=== PATIENT | female | born 1965 | race Caucasian/White ===

== ENCOUNTER 2017-09-22 14:36 | Emergency (ER) | payer SELFPAY ==
[~2017-09-22] VITALS: Ht 175.3 cm; Wt 51.0 kg
[~2017-09-22 14:36] MED LIST: CLIN150 PO; IBUP800T23 PO; RISP2TAB2 PO; TRAM50 PO
[2017-09-22 14:41] VITALS: BP 110/54; PULSE 87; RESP 16; TEMP 99.1; O2SAT 94
--- NOTE | 2017-09-22 14:57 | PD ---
HPI Chief Complaint: Cold / Flu Symptoms Time Seen by Provider: 14:47 Travel History International Travel<30 days: No Contact w/Intl Traveler<30days: No Traveled to known affect area: No History of Present Illness HPI 52-year-old female presents to the emergency department for evaluation of cold symptoms for 3 days. Patient reports sore throat, coughing, congestion. Patient denies any history of asthma, COPD, pneumonia. Patient denies any fevers or chills. No chest pain. No abdominal pain. She reports decreased appetite. No vomiting. No diarrhea. No exacerbating or alleviating factors. Mild severity. PFSH Past Medical History Bipolar Disorder: Yes Anxiety: Yes Cardiovascular Problems: Yes Diminished Hearing: No Hypertension: Yes Implanted Vascular Access Dvce: Yes (AICD - [employer]) Psychiatric: Yes Menopausal: Yes Past Surgical History Abdominal Surgery: Yes (HX SBO) AICD: Yes Cardiac Surgery: Yes (AICD PLACED 12/2006) Hysterectomy: Yes Social History Alcohol Use: No (PT DENIES) Tobacco Use: Yes (ONE PPD) Substance Use: No Allergies-Medications (Allergen,Severity, Reaction): Coded Allergies: trazodone (Unverified Allergy, Severe, SVT, 12/15/16) acetaminophen (Unverified Allergy, Mild, UNKNOWN, 12/15/16) paroxetine (Unverified Allergy, Mild, UNKNOWN, 12/15/16) propoxyphene (Unverified Allergy, Mild, UNKNOWN, 12/15/16) Reported Meds & Prescriptions Reported Meds & Active Scripts Active Risperdal (Risperidone) 2 Mg Tab 2 Mg PO BID 30 Days Reported Remeron (Mirtazapine) 15 Mg Tab 7.5 Mg PO HS Review of Systems Except as stated in HPI: all other systems reviewed are Neg Physical Exam Narrative GENERAL: Well-nourished, well-developed female patient, afebrile SKIN: Focused skin assessment warm/dry. HEAD: Normocephalic. Atraumatic ENT: Mucosa pink and moist. No erythema or exudates. No uvular edema. No uvular , palatal, or tonsillar deviation. Airway patent. Nasal turbinates appear normal without nasal blood, purulent drainage or septal hematoma. Bilateral tympanic membranes clear without erythema or perforation. EYES: No scleral icterus. No injection or drainage. NECK: Supple, trachea midline. No JVD or lymphadenopathy. CARDIOVASCULAR: Regular rate and rhythm without murmurs, gallops, or rubs. RESPIRATORY: Breath sounds equal bilaterally. No accessory muscle use. Lung sounds are clear to auscultation. Dry cough noted GASTROINTESTINAL: Abdomen soft, non-tender, nondistended. MUSCULOSKELETAL: No cyanosis, or edema. BACK: Nontender without obvious deformity. No CVA tenderness. Data Data Last Documented VS Vital Signs Date Time Temp Pulse Resp B/P (MAP) Pulse Ox O2 Delivery O2 Flow Rate FiO2 09/22/17 14:41 99.1 87 16 110/54 (72) 94 Orders Orders Chest, Pa & Lat (09/22/17 ) Group A Rapid Strep Screen (09/22/17 14:57) Strep Culture (Group A) (09/22/17 15:00) MDM Medical Decision Making Medical Screen Exam Complete: Yes Emergency Medical Condition: Yes Medical Record Reviewed: Yes Interpretation(s) Last Impressions Chest X-Ray 09/22/17 0000 Signed Impressions: CONCLUSION: 1. Hyperaeration characteristic of COPD. 2. No acute intrathoracic disease. Electronically signed by: Abe Torres MD 09/22/2017 3:27 PM EDT Differential Diagnosis Bronchitis versus URI versus pneumonia versus COPD exacerbation Narrative Course 52-year-old female presents to the emergency department for evaluation of cold symptoms for 3 days. Chest x-ray and strep swab are ordered and pending. Chest x-ray shows Hyperaeration characteristic of COPD; No acute intrathoracic disease. Strep is negative Patient will be started on azithromycin, benzonatate capsules for URI. She will be started antibiotics due to COPD. She verbalizes agreement to this. She is instructed to follow the primary care physician. She is return here for any acute worsening of symptoms. She is requesting a note for work. The patient was discharged in stable condition with instructions, including return instructions and follow up instructions. Diagnosis Primary Impression: Upper respiratory infection, acute Referrals: Primary Care Physician call for appointment Patient Instructions: General Instructions, Upper Respiratory Infection (ED) Departure Forms: Tests/Procedures, Work Release Enter return to work date: September 25, 2017 Additional Instructions: Take antibiotic as directed until gone. Take benzonatate capsules as directed as needed for cough. Follow-up with a primary care physician. Return to the emergency department for any acute worsening of symptoms. Med/Other Pt SpecificInfo: Prescription(s) given Scripts Benzonatate (Benzonatate) 200 Mg Cap 200 MG PO TID Y for COUGH, #21 CAP 0 Refills Prov: Maria Elena Merritt 09/22/17 Azithromycin (Zithromax Z-Kenan) 250 Mg Dspk 250 MG PO DIRECTED for Infection, #1 DSPK 0 Refills 500 MG (2 tabs) day 1, then 1 tab days 2-5. Prov: Maria Elena Merritt 09/22/17 Disposition: 01 DISCHARGE HOME Condition: Stable Maria Elena Merritt September 22, 2017 14:57
[2017-09-22] MEDS ORDERED: REME15TA PO (15:07)
--- NOTE | 2017-09-22 15:28 | RADRPT ---
EXAM DATE: 09/22/2017 3:24 PM EDT AGE/SEX: 52 years / Female INDICATIONS: Cough and flu like symptoms. CLINICAL DATA: This is the patient's initial encounter. Patient reports that signs and symptoms have been present for 3 days and indicates a pain score of 3/10. MEDICAL/SURGICAL HISTORY: None. Defibrillator. Hysterectomy. COMPARISON: No prior [facility] exams available for comparison. FINDINGS: PA and lateral views of the chest demonstrate the lungs to be symmetrically aerated without evidence of mass, infiltrate or effusion. There is hyperaeration bilaterally. The cardiomediastinal contours a re unremarkable. Osseous structures are intact. There is a pacemaker overlying the left chest. Bilate ral breast implants are in place. CONCLUSION: 1. Hyperaeration characteristic of COPD. 2. No acute intrathoracic disease. Electronically signed by: Abe Torres MD 09/22/2017 3:27 PM EDT
[2017-09-22] MEDS ORDERED: BENZ1CAP51 PO (15:44)
[2017-09-22] MEDS ORDERED: ZITHTAB PO (15:44)
== END 2017-09-22 16:03 | disposition home or self-care (01) ==
LOC: NEPK 14:36
DX: J06.9 Acute upper respiratory infection, unspecified (principal); F17.200 Nicotine dependence, unspecified, uncomplicated
CPT/HCPCS: 71046; 87081; 87880; 99284